=== PATIENT | male | born 1950 | race Caucasian/White ===

== ENCOUNTER 2018-05-04 19:55 | Emergency (ER) | payer MEDICAID ==
[~2018-05-04] VITALS: Ht 167.6 cm; Wt 54.4 kg
[2018-05-04 20:07] VITALS: Ht 167.6 cm; Wt 54.4 kg
[2018-05-04 20:44] LABS: microscopic required? NO
[2018-05-04 20:53] LABS: BASOPHIL % 0.4 % (0-2); PLATELET COUNT 212 x10^3mcL (130-400)
[2018-05-04 20:55] LABS: UA SPECIFIC GRAVITY 1.025 (1.005-1.035); urine erythrocyte NEGATIVE (NEGATIVE)
[2018-05-04 20:55] LABS: RED CELL DISTRIBUTION WIDTH 15.1 % (11.5-14.5)
[2018-05-04 21:07] LABS: CHLORIDE SERUM 100 mmol/L (98-107); CREATININE SERUM 0.7 mg/dL (0.7-1.3); GFR1 > 60 mL/min; GLUCOSE SERUM 131 mg/dL (74-106); SODIUM SERUM 140 mmol/L (136-145)
[2018-05-04 21:12] LABS: ALBUMIN 4.3 g/dL (3.4-5.0); ALKALINE PHOSPHATASE 134 U/L (46-116); ALT/SGPT 17 U/L (16-63); AST/SGOT 25 U/L (15-37); BILIRUBIN TOTAL 0.7 mg/dL (0.20-1.00); TOTAL PROTEIN, SERUM 9.4 g/dL (6.4-8.2)
[2018-05-04 21:16] LABS: CK-MB 0.9 ng/mL (0-3.6)
[2018-05-04 23:04] VITALS: BP 141/84
== END 2018-05-04 23:04 | disposition home or self-care (01) ==
LOC: ED 19:55
PROVIDERS: Emergency Medicine
DX: H10.33 Unspecified acute conjunctivitis, bilateral (principal); E86.0 Dehydration; R41.82 Altered mental status, unspecified; Z86.73 Personal history of transient ischemic attack (TIA), and cerebral infarction without residual deficits
CPT/HCPCS: 87804; J7030; Q0092